=== PATIENT | male | born 1980 | race Caucasian/White ===

== ENCOUNTER 2017-02-22 18:02 | Emergency (ER) | payer OTHER ==
[~2017-02-22] VITALS: Ht 172.7 cm; Wt 96.3 kg
[2017-02-22 18:14] VITALS: TEMP 36.4; Ht 172.7 cm; Wt 96.3 kg
[2017-02-22] MEDS ORDERED: KETOROLAC TROMETHAMINE 30 MG/ML VIAL IV STA (18:41)
[2017-02-22] MEDS ORDERED: SODIUM CHLORIDE 0.9% 1000ML 1,000 ML IV STA (18:41)
[2017-02-22] MEDS ORDERED: ONDANSETRON INJ 2 MG/ML 2 ML VIAL IV STA (18:41)
[2017-02-22] MEDS ORDERED: FENTANYL CITRATE INJ 50 MCG/1 ML 2 ML VIAL IV STA (18:47)
[2017-02-22] MEDS ORDERED: LORAZEPAM 2 MG/ML 1 ML VIAL IV STA (18:47)
[2017-02-22] MEDS ORDERED: CIPR1TAB10 PO (19:18)
[2017-02-22 19:20] LABS: BASO % 0.8 %; BASO ABS # 0.05 K/uL (0-0.2); COMPLETE YES; EOS % 2.1 %; HEMATOCRIT 40.5 % (42-52); LYMPH % 38.2 %; LYMPH ABS # 2.49 K/uL (1.2-3.4); MEAN CELL VOLUME 84.9 fL (80-100); MEAN CORPUSCULAR HEMOGLOBIN 29.4 pg (25-34); MEAN CORPUSCULAR HGB CONC 34.6 g/dl (32-36); MEAN PLATELET VOLUME 10.9 fL (7.4-10.4); MONO % 11.7 %; NEUT % 47.2 %; PLATELET COUNT 161 K/uL (130-400); RED BLOOD COUNT 4.77 M/uL (4.7-6.1); WHITE BLOOD COUNT 6.52 K/uL (4.8-10.8)
[2017-02-22 19:43] LABS: URINE APPEARANCE CLEAR (CLEAR); URINE BILIRUBIN NEG (NEG); URINE COLOR YELLOW; URINE NITRITE NEG (NEG); URINE PH 7.5 (4.5-7.5); URINE SPECIFIC GRAVITY 1.026 (1.000-1.030); UROBILINOGEN NEG (NEG)
[2017-02-22 19:44] LABS: BUN/CREATININE RATIO 13.5 (10-20); CREATININE 1.2 mg/dl (0.60-1.40); POTASSIUM 3.6 mmol/L (3.5-5.1)
[2017-02-22 19:47] LABS: MANUAL MICROSCOPIC REQUIRED? NO; REVIEW REQ? NO
[2017-02-22 19:47] LABS: ALB/GLOB RATIO 1.3 (0.9-2)
[2017-02-22] MEDS ORDERED: OPTIRAY 320 IV PRN (20:00)
--- NOTE | 2017-02-22 20:32 | DIAGNOSTIC IMAGING REPORT ---
ABDOMEN AND PELVIS CT WITH IV CONTRAST CT DOSE: 585.99 mGy.cm HISTORY: Right flank pain EVAL R ABD PAIN TECHNIQUE: Multiaxial CT images of the abdomen and pelvis were performed following the use of intravenous contrast. COMPARISON STUDY: None. FINDINGS: Lung bases are clear. Mild hepatomegaly with components of fatty infiltration. Spleen is unremarkable. Kidneys negative for hydronephrosis or hydroureter. Small gallstone within the gallbladder neck measuring 6 mm. No evidence of biliary ductal distention. Bowel pattern is nonobstructive. The appendix has been surgically removed. Chronic sigmoid diverticulosis. No evidence for acute diverticulitis. Thickening of fascial planes within the right inguinal canal region of the secondary to post operative hernia) scarring. No evidence for any recurrence. Bladder is midline. No free fluid within the pelvic cul-de-sac. IMPRESSION: 1. Chronic sigmoid diverticulosis. 2. No evidence for acute diverticulitis. 3. 6 mm gallstone the region of the gallbladder neck. 4. Mild hepatomegaly with components of fatty infiltration Electronically signed by: Jose Carey M.D. 02/22/2017 8:30 PM Dictated Date/Time: 02/22/2017 8:24 PM
[2017-02-22] MEDS ORDERED: ONDA4TAB10 SL (21:12)
[2017-02-22] MEDS ORDERED: HYDR-5688 PO (21:12)
[2017-02-22] MEDS ORDERED: OMEP40CA41 PO (21:12)
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
[2017-02-22] MEDS ORDERED: ONDANSETRON HOME PACK 4MG OD TAB PO ONE (21:15)
[2017-02-22] MEDS ORDERED: NORCO 5/325MG HOME PACK PO ONE (21:15)
[2017-02-22 21:22] VITALS: BP 106/70; PULSE 66; O2SAT 98
[2017-06-29] MEDS ORDERED: ACET-1256 PO (19:18)
== END 2017-02-22 21:39 | disposition home or self-care (01) ==
LOC: C.EDB 18:03
DX: R10.31 Right lower quadrant pain (principal); G71.0 Muscular dystrophy; Z87.891 Personal history of nicotine dependence; Z79.899 Other long term (current) drug therapy

== ENCOUNTER 2017-06-29 20:40 | Emergency (ER) | payer OTHER ==
[~2017-06-29] VITALS: Ht 172.7 cm; Wt 96.8 kg
[~2017-06-29 20:40] MED LIST: ACET-1256 PO; CIPR1TAB10 PO; HYDR-5688 PO; ONDA4TAB10 SL
[2017-06-29 20:45] VITALS: TEMP 36.7; Ht 172.7 cm; Wt 96.8 kg
[2017-06-29] MEDS ORDERED: KETOROLAC TROMETHAMINE 60 MG/2 ML VIAL IM STA (22:20)
[2017-06-29] MEDS ORDERED: HYDROCODONE/ACETAMOPHEN 5/325MG TAB PO ONE (22:30)
--- NOTE | 2017-06-29 23:16 | DIAGNOSTIC IMAGING REPORT ---
L-SPINE MIN 4 VIEWS ROUTINE CLINICAL HISTORY: 36 years-old Male presenting with Low back pain/injury. TECHNIQUE: Frontal, bilateral oblique, and lateral views of the lumbar spine and coned in lateral view of the lumbosacral junction were obtained. COMPARISON: 12/04/2015. FINDINGS: Straightening of normal lumbar lordosis. Vertebral body heights and intervertebral disc spaces maintained. No significant degenerative change. No apparent osseous neural foraminal narrowing. No radiographic evidence of acute fracture or subluxation. Mild stool burden. Nonobstructive bowel gas pattern. No calcifications project over the kidneys or along the courses of the ureters. IMPRESSION: Slight straightening of normal lumbar lordosis likely positional. Otherwise normal lumbar spine. Electronically signed by: Dion Brenner M.D. 06/29/2017 11:15 PM Dictated Date/Time: 06/29/2017 11:14 PM
[2017-06-29] MEDS ORDERED: NORCO 5/325MG HOME PACK PO ONE (23:30)
[2017-06-29] MEDS ORDERED: FLEXERIL HOME PACK 10 MG VIAL PO ONE (23:30)
[2017-06-29] MEDS ORDERED: HYDR-5688 PO (23:32)
[2017-06-29] MEDS ORDERED: PRED50TA PO (23:32)
[2017-06-29] MEDS ORDERED: CYCL10TA6 PO (23:32)
[2017-06-29 23:50] VITALS: BP 134/88; PULSE 64; O2SAT 98
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
--- NOTE | 2017-07-19 15:25 | Pharmacy Progress Note ---
ED Pharmacist Progress Note Date of Service: Jul 19, 2017. Hard copy prescription for [place] was available to the patient for pick-up in ED if needed. Patient has not returned for it. Mamadou Maldonado PA-C confirmed it was OK to dispose of. I tore it up in his presence and placed pieces in shred bin.
== END 2017-06-29 23:55 | disposition home or self-care (01) ==
LOC: C.EDB 20:42 → C.EDD 23:55
DX: M54.5 Low back pain (principal); Z87.828 Personal history of other (healed) physical injury and trauma; Z98.890 Other specified postprocedural states